=== PATIENT | female | born 1965 | race Caucasian/White ===

== ENCOUNTER 2023-02-20 09:23 | Outpatient (CLI) | payer OTHER | END 2023-02-20 09:24 | disposition home or self-care (01) | LOC: BICCT 09:23 | PROVIDERS: ATTEND Family Medicine | DX: R31.0 Gross hematuria (principal); K44.9 Diaphragmatic hernia without obstruction or gangrene; K82.8 Other specified diseases of gallbladder; Z87.448 Personal history of other diseases of urinary system | CPT/HCPCS: 74176 ==